=== PATIENT | female | born 1975 | race Caucasian/White ===

== ENCOUNTER 2016-06-23 07:15 | Emergency (ER) | payer OTHER ==
[2016-06-23 07:44] VITALS: BP 146/87; PULSE 92; RESP 18; TEMP 98.6; O2SAT 93
--- NOTE | 2016-06-23 07:59 | UCPHY ---
H & P Time Seen by Provider: 06/23/16 07:29 Patient Type: Established HPI/ROS: 41-year-old female presents complaining of sore throat, nasal congestion, postnasal drip as well as cough x4 days. No neck pain. Review of systems As per HPI General positive fever positive chills no weakness HEENT no eye pain no eye discharge. No eye redness, positive sore throat Respiratory positive cough, no shortness of breath Cardiac no chest pain, no peripheral edema GI no abdominal pain, no diarrhea, no constipation, no nausea, no vomiting no flank pain, no hematuria, no dysuria Musculoskeletal no myalgias, no joint pain Heme no easy bruising, no easy bleeding Endo no polyuria, no polydipsia Skin no rashes, no pruritus Neuro no syncope, no dizziness, no headaches Psych is no suicidal ideation, no homicidal ideation Past Medical/Surgical History: No significant past medical history Social History: Drinks alcohol socially, denies drug use Smoking Status: Never smoked Physical Exam: 41-year-old female Alert and oriented nontoxic appearance, no acute distress afebrile Atraumatic normocephalic Extraocular muscles intact, anicteric Nares mild yellowish discharge Oropharynx mild erythema no tonsillar swelling no exudate no uvular deviation, tolerating own secretions Neck supple no lymphadenopathy Lungs clear to auscultation bilaterally Heart regular rate and rhythm Abdomen normoactive bowel sounds soft nontender Extremities no cyanosis clubbing or edema Skin no rash Constitutional: Initial Vital Signs Temperature (C) 37.0 C 06/23/16 07:35 Heart Rate 92 06/23/16 07:35 Respiratory Rate 18 06/23/16 07:35 Blood Pressure 146/87 H 06/23/16 07:35 O2 Sat (%) 93 06/23/16 07:35 O2 Delivery Mode Room Air Allergies/Adverse Reactions: adhesive tape Allergy (Unknown, Verified 06/23/16 07:33) erythromycin base [Erythromycin Base] Allergy (Verified 06/23/16 07:33) Hives Home Medications: Medication Instructions Recorded Oseltamivir Phosphate [Tamiflu 75 75 mg PO BID #10 cap 06/23/16 mg (*)] Medical Decision Making ED Course/Re-evaluation: Patient seen and evaluated for sore throat fevers chills body aches cough. Physical exam as documented Differential diagnosis considered Bronchitis, pharyngitis, pneumonia, influenza, strep throat Influenza swab positive for influenza B Strep swab negative Impression Influenza Plan Tamiflu Supportive care Follow-up primary care physician - Data Points Laboratory Results: 06/23/16 06/23/16 06/23/16 Unknown 07:50 07:50 Influenza Typ A,B (DFA) POSITIVE FOR FLU B H (NEGATIVE) Group A Strep Screen NEGATIVE (NEGATIVE) Group A Strep DNA Pending Departure - Departure Disposition: Home, Routine, Self-Care Clinical Impression: Influenza B Condition: Good Instructions: Influenza (ED) Referrals: NONE *PRIMARY CARE P,. [Primary Care Provider] - As per Instructions Stand Alone Forms: Work Excuse Prescriptions: Oseltamivir Phosphate [Tamiflu 75 mg (*)] 75 mg PO BID #10 cap - PQRS PQRS Measurement: na
== END 2016-06-23 08:41 | disposition home or self-care (01) ==
LOC: CED 07:15
DX: J10.1 Influenza due to other identified influenza virus with other respiratory manifestations (principal)
CPT/HCPCS: 87400-PO; 87880-PO; 99214-PO; G0463-PO

== ENCOUNTER 2018-01-09 07:02 | Emergency (ER) | payer OTHER ==
[2018-01-09 07:10] VITALS: BP 125/87
[2018-01-09] MEDS ORDERED: OXYMETAZOLINE 30 ML NASAL SPRAY EACHNARE ONE (07:27)
[2018-01-09] MEDS ORDERED: AZITHROMYCIN 250 MG TAB PO ONE (07:28)
--- NOTE | 2018-01-09 07:30 | EDPHY ---
H & P Stated Complaint: cough since Tuesday . sinus pressure Time Seen by Provider: 01/09/18 07:09 HPI/ROS: CHIEF COMPLAINT: Sinusitis HISTORY OF PRESENT ILLNESS: The patient is a 42-year-old female who comes to the emergency department complaining of sinus congestion, yellowish discharge, cough, pressure in her forehead and fullness in her ears. Her symptoms began about 4 days ago. She has not had a fever. No shortness of breath. No chest pain. She states that this feels worse than her typical cold. She has been taking [id number] cough suppressants without significant improvement. No decongestants. Severity: Moderate Modifying factors: None REVIEW OF SYSTEMS: Constitutional: denies: chills, fever, recent illness, recent injury EENTM: See HPI Respiratory: See HPI denies: shortness of breath Cardiac: denies: chest pain, irregular heart rate, lightheadedness, palpitations Gastrointestinal/Abdominal: denies: abdominal pain, diarrhea, nausea, vomiting, blood streaked stools Genitourinary: denies: dysuria, frequency, hematuria, pain Musculoskeletal: denies: joint pain, muscle pain Skin: denies: lesions, rash, jaundice, bruising Neurological: denies: headache, numbness, paresthesia, tingling, dizziness, weakness Hematologic/Lymphatic: denies: blood clots, easy bleeding, easy bruising Immunologic/allergic: denies: HIV/AIDS, transplant 10 systems reviewed and negative except as noted EXAM: GENERAL: Well-appearing, well-nourished and in no acute distress. HEAD: Atraumatic, normocephalic. EYES: Pupils equal round and reactive to light, extraocular movements intact, sclera anicteric, conjunctiva are normal. ENT: Bilateral frontal sinus pressure and mild tenderness, TMs with bilateral effusions, no erythema, nares patent, oropharynx clear without exudates. Moist mucous membranes. NECK: Normal range of motion, supple without lymphadenopathy or JVD. LUNGS: Breath sounds clear to auscultation bilaterally and equal. No wheezes rales or rhonchi. HEART: Regular rate and rhythm without murmurs, rubs or gallops. ABDOMEN: Soft, nontender, normoactive bowel sounds. No guarding, no rebound. No masses appreciated. BACK: No CVA tenderness, no spinal tenderness, step-offs or deformities EXTREMITIES: Normal range of motion, no pitting or edema. No clubbing or cyanosis. NEUROLOGICAL: Cranial nerves II through XII grossly intact. Normal speech, normal gait. 5/5 strength, normal movement in all extremities, normal sensation , normal reflexes PSYCH: Normal mood, normal affect. SKIN: Warm, dry, normal turgor, no visible rashes or lesions. Source: Patient Exam Limitations: No limitations - Personal History LMP (Females 10-55): 1-7 Days Ago Current Tetanus/Diphtheria Vaccine: No Current Tetanus Diphtheria and Acellular Pertussis (TDAP): No - Medical/Surgical History Hx Asthma: No Hx Chronic Respiratory Disease: No Hx Diabetes: No Hx Cardiac Disease: No Hx Renal Disease: No Hx Cirrhosis: No Hx Alcoholism: No Hx HIV/AIDS: No Hx Splenectomy or Spleen Trauma: No Other PMH: orthopedic surgeries - Family History Significant Family History: No pertinent family hx - Social History Smoking Status: Never smoked Alcohol Use: None Constitutional: Initial Vital Signs Temperature (C) 37.1 C 01/09/18 07:06 Heart Rate 88 01/09/18 07:06 Respiratory Rate 16 01/09/18 07:06 Blood Pressure 125/87 H 01/09/18 07:06 O2 Sat (%) 94 01/09/18 07:06 O2 Delivery Mode Room Air Allergies/Adverse Reactions: adhesive tape Allergy (Unknown, Verified 01/09/18 07:10) erythromycin base [Erythromycin Base] Allergy (Verified 01/09/18 07:10) Hives Home Medications: Medication Instructions Recorded Azithromycin 250 mg PO DAILY #4 tablet 01/09/18 Fluconazole [Diflucan (*)] 150 mg PO ONCE #1 tab 01/09/18 Promethazine HCl/Codeine 5 ml PO Q4-6PRN PRN #90 ml 01/09/18 [Prometh-Codein 6.25-10 mg/5 ml] Medical Decision Making ED Course/Re-evaluation: We discussed risks versus benefits of antibiotics. The patient is requesting antibiotics. I will start her on azithromycin. She has tolerated this well before. I also suggested decongestants will give her dose of Afrin and she is requesting cough syrup. We discussed treatment plan and indications for returning. She feels comfortable with this. She also requests a note for work. She states that she frequently gets yeast infections with antibiotics. Differential Diagnosis: Partial list of the Differential diagnosis considered include but were not limited to; sinusitis, upper respiratory tract infection, otitis media and although unlikely based on the history and physical exam, I also considered meningitis, abscess. I discussed these differential diagnoses and the plan with the patient as well as the usual and expected course. The patient understands that the diagnosis is provisional and that in medicine we are not always correct and that further workup is often warranted. Usual and customary warnings were given. All of the patient's questions were answered. The patient was instructed to return to the emergency department should the symptoms at all worsen or return, otherwise to followup with the physician as we discussed. - Data Points Medications Given: Discontinued Medications Azithromycin (Zithromax) 500 mg PO EDNOW ONE PRN Reason: Protocol Stop: 01/09/18 07:29 Last Admin: 01/09/18 07:45 Dose: 500 mg Oxymetazoline HCl (Afrin Nasal Vancleve) 2 sprays EACHNARE EDNOW ONE Stop: 01/09/18 07:28 Last Admin: 01/09/18 07:43 Dose: 2 spr Departure - Departure Disposition: Home, Routine, Self-Care Clinical Impression: Cough Sinusitis Qualifiers: Sinusitis location: frontal Chronicity: acute Recurrence: recurrent Qualified Code(s): J01.11 - Acute recurrent frontal sinusitis Condition: Fair Instructions: Sinusitis (ED) Referrals: Duc Franklin DO [Doctor of Osteopathy] - 2-3 days, if not improved Stand Alone Forms: Work Excuse Prescriptions: Azithromycin 250 mg PO DAILY #4 tablet Fluconazole [Diflucan (*)] 150 mg PO ONCE #1 tab Promethazine HCl/Codeine [Prometh-Codein 6.25-10 mg/5 ml] 5 ml PO Q4-6PRN PRN # 90 ml PRN Reason: Cough, Moderate
== END 2018-01-09 07:40 | disposition home or self-care (01) ==
LOC: CED 07:02
DX: J01.11 Acute recurrent frontal sinusitis (principal)